=== PATIENT | male | born 1960 | race Caucasian/White ===

== ENCOUNTER → 2019-04-01 | Outpatient (CLI) | payer BC ==
--- NOTE | 2019-04-01 10:32 | PCVCIMAG ---
APPROVED REPORT Study performed: 04/01/2019 08:47:00 EXAM: Comprehensive 2D, Doppler, and color-flow Echocardiogram Patient Location: Echo lab Status: routine BSA: 2.06 HR: 60 bpmBP: 171/90 mmHg Rhythm: NSR Other Information Study Quality: Good Indications Dyspnea Palpitations Abnormal ekg 2D Dimensions IVSd: 7.98 (7-11mm)LVOT Diam: 25.23 (18-24mm) LVDd: 47.82 mm PWd: 9.43 (7-11mm)Ascending Ao: 38.37 (22-36mm) LVDs: 36.03 (25-40mm) Left Atrium: 31.60 (27-40mm) Aortic Root: 41.25 mm LV Single Plane 4CH: 50.47 % LV Single Plane 2CH: 60.20 % Biplane EF: 56.7 % Volumes Left Atrial Volume (Systole) Single Plane 4CH: 37.67 mLSingle Plane 2CH: 61.18 mL Aortic Valve AoV Peak Jan.: 0.84 m/s AO Peak Gr.: 2.85 mmHgLVOT Max P.58 mmHg LVOT Max V: 0.80 m/s SOFIE Vmax: 4.76 cm2 Mitral Valve E/A Ratio: 1.0 MV Decel. Time: 194.36 ms MV E Max Jan.: 0.58 m/s MV A Jan.: 0.60 m/s Pulmonary Valve PV Peak Gr.: 1.10 mmHg Pulmonary Vein P Vein S: 0.50 m/sP Vein A: 0.39 m/s P Vein D: 0.34 m/sP Vein A Dur.: 96.9 msec P Vein S/D Ratio: 1.47 Tricuspid Valve TR Peak Jan.: 2.11 m/s TR Peak Gr.: 17.88 mmHg Left Ventricle The left ventricle is normal size. There is normal LV segmental wall motion. There is normal left ventricular wall thickness. Left ventricular systolic function is low-normal. LVEF is - 50%. Grade I - abnormal relaxation pattern. Right Ventricle The right ventricle is normal size. The right ventricular systolic function is normal. Atria The left atrium size is normal. The right atrium size is normal. Aortic Valve The aortic valve is normal in structure. No aortic regurgitation is present. There is no aortic valvular stenosis. Mitral Valve The mitral valve is normal in structure. Trace mitral regurgitation. No evidence of mitral valve stenosis. Tricuspid Valve The tricuspid valve is normal in structure. Trace tricuspid regurgitation. Pulmonic Valve The pulmonary valve is normal in structure. There is no pulmonic valvular regurgitation. Great Vessels The aortic root is normal in size. IVC is normal in size and collapses >50% with inspiration. Pericardium There is no pericardial effusion. <Conclusion> The left ventricle is normal size. There is normal left ventricular wall thickness. The right ventricle is normal size. The left atrium size is normal. The aortic valve is normal in structure. Trace mitral regurgitation. Trace tricuspid regurgitation.
--- NOTE | 2019-04-01 11:10 | PCVCIMAG ---
APPROVED REPORT Patient Location: Echo lab Room #: Stress Nurse: Garima Hughes RN Treadmill Stress Test; Indications: Palpitations, Dyspnea, Abnormal ekg. The patient exercised according to the ENA protocol for 15:01 mins, achieving a work level of MAX METS 17.50. The resting heart rate of 53bpm gala to a maximal heart rate of 164 bpm. This value represents 101% of the maximal, age predicted heart rate. The resting blood pressure of 110/80mmHg, gala to a maximum blood pressure of 164/60 mmHg. The exercise test was stopped due to fatigue. Conclusion 1. Clinical response, nonischemic. 2. Stress ECG response, nonischemic. 3. Exercise capacity, superior.
== END | disposition home or self-care (01) ==
LOC: PCVCIMAG 08:34
PROVIDERS: ATTEND Internal Medicine Cardiovascular Disease
DX: R00.2 Palpitations (principal); R06.09 Other forms of dyspnea; R94.31 Abnormal electrocardiogram [ECG] [EKG]; Z79.899 Other long term (current) drug therapy
CPT/HCPCS: 93017; 93306